=== PATIENT | female | born 1960 | race Caucasian/White ===

== ENCOUNTER → 2021-03-30 08:30 | Outpatient (BNVA) | payer OTHER, SELFPAY | PROVIDERS: Visit Provider Anesthesiology Pain Medicine | DX: G89.29 Other chronic pain (principal); M54.12 Radiculopathy, cervical region; M50.90 Cervical disc disorder, unspecified, unspecified cervical region; M79.602 Pain in left arm; Z98.890 Other specified postprocedural states; Z90.13 Acquired absence of bilateral breasts and nipples; Z98.891 History of uterine scar from previous surgery; Z79.899 Other long term (current) drug therapy | CPT/HCPCS: 99204 ==